=== PATIENT | female | born 2000 | race Caucasian/White ===

== ENCOUNTER 2023-12-06 19:13 | Emergency (ER) | payer SELFPAY ==
[2023-12-06] VITALS (10 sets, daily range): BP systolic 123–148; BP diastolic 77–83; PULSE 64–97; RESP 12–20; TEMP 36.8–37.1; O2SAT 97–100; BMI 36.0
--- NOTE | 2023-12-06 19:18 | ED_ITS ---
<Statement entered by Marlena Somers DO - 12/06/23 23:46> I was consulted by the ALCIRA, and we discussed the complexity of the problems being addressed. I approved the treatment and management plan for this patient's care in the emergency department, thus performing a substantive portion of the medical decision making. No signs of anaphylaxis on clinical exam Marlena Somers DO Discharge Plan Disposition Patient Disposition: Home, Self-Care Condition: Good Prescriptions Prescriptions: No Action No Known Home Medications Referrals Follow up/Referrals: Luis Alberto Dobbins MD [Staff Physician] - See instructions Activity Restrictions/Add. Instructions Additional Instructions/Restrictions: Follow-up with your PCP for any worsening signs or symptoms or return to the ER as needed. You can continue taking Benadryl along with Tylenol and Motrin as needed for symptomatic treatment. Return to ER for any difficulty breathing or significant shortness of breath. Clinical Impressions Clinical Impression: Hornet sting Instructions Patient Instructions: DI for Insect Bites and Stings Print Language Print Language: Spanish Discharge ED Provider: Marlena Somers General Adult HPI General Chief complaint: Skin/Abscess/Foreign Body Stated complaint: Stung by hornets Time Seen by Provider: 12/06/23 19:17 History of Present Illness HPI narrative: Patient presents for evaluation of hornet stings. Patient states that she was struck proximately 6 times by hornets . This happened approximately 2 hours pr ior to arrival. 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 She began feeling nauseous so her mother gave her charcoal powder mixed with water and honey to drink to take out the poisons . She denies chest pain shortness of breath fever chills hemoptysis hematochezia melena vomiting or diarrhea. Patient received 50 mg of Benadryl and Zofran IV by EMS prior to arrival. Related Data Home Medications ?Medication ?Instructions ?Recorded ?Confirmed No Known Home Medications 01/13/19 01/13/19 Allergies Allergy/AdvReac Type Severity Reaction Status Date / Time No Known Allergies Allergy Verified 01/13/19 00:50 [facility] Disclaimer: The information contained in this section may have been updated after the patient was seen, as this information can be updated by other users. Social History Smoking Status: Never smoker alcohol intake: never current occupational status: student Travel in the last 8 weeks: None ROS Obtained: Yes Systems reviewed as appropriate & no additional complaints except as documented Physical Exam General General appearance: alert and in no apparent distress Respiratory Respiratory exam: Present normal lung sounds bilaterally Cardiovascular Cardiovascular exam: Present regular rate; Absent normal heart sounds Neurological Exam Neurological exam: Present alert and oriented X3 Medical Decision Making [place] Inquiry Pt receiving controlled substance: No Vital Signs: 12/06/23 19:13 Temperature 98.8 F Temperature Source Oral Pulse Rate [Left Radial] 97 H Respiratory Rate 18 Blood Pressure [Right Arm] 148/81 H Blood Pressure Mean [Right Arm] 103 Blood Pressure Source [Right Arm] Automatic Cuff Blood Pressure Position [Right Arm] Sitting 02 Sat by Pulse Oximetry 98 Oxygen Delivery Method Room Air Orders (Tests/Meds): ED MEDICATIONS Generic Name Dose Route Start Last Admin Trade Name Freq PRN Reason Stop Dose Admin Sodium Chloride 8 ml 12/06/23 19:43 12/06/23 19:49 Sodium Chloride 0.9% 10ml Vial IV 01/05/24 19:42 8 ml NEEDED PRN Administration dilute pepcid Discontinued Medications Generic Name Dose Route Start Last Admin Trade Name Freq PRN Reason Stop Dose Admin Dexamethasone Sodium Phosphate 10 mg 12/06/23 19:18 12/06/23 19:42 Dexamethasone 4mg/Ml 5ml Mdv IV 12/06/23 19:19 10 mg ONCE ONE Administration Famotidine 20 mg 12/06/23 19:43 12/06/23 19:47 Famotidine 20mg/2ml Vial IV 12/06/23 19:44 20 mg ONCE ONE Administration Lactated Ringer's 1,000 mls @ 999 mls/hr 12/06/23 19:43 12/06/23 19:47 Lactated Ringer's 1000 Ml Bag IV 12/06/23 20:43 999 mls/hr .Q1H1M ONE Administration Ketorolac Tromethamine 15 mg 12/06/23 19:18 12/06/23 19:43 Ketorolac 30mg/Ml Vial IV 12/06/23 19:19 15 mg ONCE ONE Administration Ketorolac Tromethamine 15 mg 12/06/23 20:15 12/06/23 20:23 Ketorolac 30mg/Ml Vial IV 12/06/23 20:16 Not Given ONCE ONE Promethazine HCl 12.5 mg 12/06/23 19:18 09/04/24 19:43 Promethazine Hcl 25mg/Ml 1ml Vial IV 12/06/23 19:19 12.5 mg ONCE ONE Administration Sodium Chloride 25 ml 12/06/23 19:18 12/06/23 19:42 Sodium Chloride 0.9% 25ml Bag IV 12/06/23 19:19 25 ml ONCE ONE Administration Medical Decision Narrative: In summary patient is a 23-year-old female who presents to the emergency department for evaluation of hornet stings. Patient is hemodynamically stable upon arrival, afebrile satting at 98% on room air breathing 18 times a minute. Physical exam shows approximately 6 areas of sting scattered over her bilateral lower extremities left upper extremity and a solitary 1 on her stomach. There does not appear to be significant edema erythema or urticaria. Appears to be very localized reaction. Breath sounds are clear and equal bilaterally to the bases without adventitious sounds patient has no increased work of breathing and patient is in normal sinus rhythm on the bedside monitor.. Differential diagnosis includes simple bee sting versus activated charcoal complication versus anaphylaxis etc. Initial workup was considered however patient has no systemic symptoms and no focal findings thus initial workup is deferred for now. Initial interventions include Phenergan and Decadron continuous cardiac monitoring and pulse oximetry. Upon repeat evaluation patient reported and improvement in her nausea and her pain. Given this patient has been hemodynamically stable and thus is appropriate for discharge with follow-up with her PCP as needed. Critical Care Critical Care Time Critical Care Time: No
--- NOTE | 2023-12-06 19:39 | PC.NURSE ---
pt ambulated to bathroom at this time.
[2023-12-06] MEDS: DEXAMETHASONE 4MG/ML 5ML MDV 10 MG IV (19:42)
[2023-12-06] MEDS: SODIUM CHLORIDE 0.9% 25ML BAG 25 ML IV (19:42)
[2023-12-06] MEDS: PROMETHAZINE HCL 25MG/ML 1ML VIAL 12.5 MG IV (19:43)
[2023-12-06] MEDS: KETOROLAC 30MG/ML VIAL 15 MG IV (19:43)
[2023-12-06] MEDS: LACTATED RINGERS 1000ML 1,000 ML 999 ML IV (19:47)
[2023-12-06] MEDS: FAMOTIDINE 20MG/2ML VIAL 20 MG IV (19:47)
[2023-12-06] MEDS: SODIUM CHLORIDE 0.9% 10ML VIAL 8 ML IV (19:49)
== END 2023-12-06 21:06 | disposition home or self-care (01) ==
PROVIDERS: Emergency Provider Emergency Medicine; PCP Nurse Practitioner Family
DX: T63.451A Toxic effect of venom of hornets, accidental (unintentional), initial encounter (principal); R11.0 Nausea
CPT/HCPCS: 96361; 96374; 96375; 99284; J1100; J1885; J2550; J7120; S0028